=== PATIENT | male | born 1960 | race Caucasian/White ===

== ENCOUNTER 2024-10-08 10:47 | Emergency (ER) | payer OTHER, MEDICARE ==
[2024-10-08] MEDS ORDERED: LIDOCAINE HCL 2% JELLY 10 ML CARTRIDGE ONE (11:05)
[2024-10-08] MEDS: LIDOCAINE HCL 2% JELLY 10 ML CARTRIDGE UR ONE (11:15)
[2024-10-08 11:19] VITALS: BP 161/72; PULSE 85; RESP 20; TEMP 98.2; BMI 25.9
[2024-10-08 12:25] LABS: EPITHELIAL CELLS 0-5 /hpf
== END 2024-10-08 12:43 | disposition home or self-care (01) ==
LOC: FER 10:47
PROC: 0T9B70Z Drainage of Bladder with Drainage Device, Via Natural or Artificial Opening (ICD-10-PCS; principal; 2024-10-08)
DX: R33.9 Retention of urine, unspecified (principal); R10.30 Lower abdominal pain, unspecified
CPT/HCPCS: 81003; 81015; 87086; 99283-25